=== PATIENT | male | born 1970 | race Caucasian/White ===

== ENCOUNTER 2018-06-04 21:45 | Emergency (ER) | payer MEDICAID, OTHER ==
[~2018-06-04] VITALS: Ht 175.3 cm; Wt 64.5 kg
[~2018-06-04 21:45] MED LIST: HYDR-4353 PO; IBUP-1986 PO
[2018-06-04 21:48] VITALS: BP 161/96
[2018-06-04] MEDS ORDERED: proparacaine 0.5% ophthalmic drops 15ml LEFTEYE ONE (22:10)
[2018-06-04] MEDS ORDERED: erythromycin ophthalmic ointment 1gm tube LEFTEYE ONE (23:20)
[2018-06-04] MEDS ORDERED: ERYT1OIN6 LEFTEYE (23:23)
== END 2018-06-04 23:32 | disposition home or self-care (01) ==
LOC: ER 21:45
DX: S05.8X2A Other injuries of left eye and orbit, initial encounter (principal); F17.200 Nicotine dependence, unspecified, uncomplicated; F15.90 Other stimulant use, unspecified, uncomplicated; Z87.442 Personal history of urinary calculi; Z88.5 Allergy status to narcotic agent; Z79.899 Other long term (current) drug therapy; W22.8XXA Striking against or struck by other objects, initial encounter; Y93.89 Activity, other specified; Y92.89 Other specified places as the place of occurrence of the external cause; Y99.8 Other external cause status
CPT/HCPCS: 99283

== ENCOUNTER 2021-06-15 00:35 | Emergency (ER) | payer MEDICAID ==
[~2021-06-15] VITALS: Ht 175.3 cm; Wt 81.8 kg
[2021-06-15 00:53] VITALS: BP 182/122
== END 2021-06-15 06:12 | disposition left against medical advice (07) ==
LOC: ER 00:35
DX: K08.89 Other specified disorders of teeth and supporting structures (principal); Z53.21 Procedure and treatment not carried out due to patient leaving prior to being seen by health care provider